=== PATIENT | female | born 1955 | race Caucasian/White ===

== ENCOUNTER 2019-02-04 08:40 | Emergency (ER) | payer SELFPAY ==
[~2019-02-04] VITALS: Ht 165.1 cm; Wt 77.0 kg
[~2019-02-04 08:40] MED LIST: METF500T PO
[2019-02-04] MEDS ORDERED: MORPHINE SULFATE 10 MG/ML CPJ IM ONE (09:00)
[2019-02-04] MEDS ORDERED: ONDANSETRON 4MG ODT PO ONE (09:00)
[2019-02-04 10:46] VITALS: BP 136/66
== END 2019-02-04 11:13 | disposition home or self-care (01) ==
LOC: ER 08:40
DX: G89.29 Other chronic pain (principal); M25.561 Pain in right knee; M25.562 Pain in left knee; E11.9 Type 2 diabetes mellitus without complications; I10 Essential (primary) hypertension; Z79.899 Other long term (current) drug therapy
CPT/HCPCS: 29505; 73562; 96372; 99283; J2270; Q0162; Z7610